=== PATIENT | female | born 1955 | race Hispanic/Latino ===

== ENCOUNTER 2023-06-07 07:40 | Day surgery (SDC) | payer OTHER ==
[2023-06-07] VITALS (11 sets, daily range): BP systolic 107–134; BP diastolic 55–76; PULSE 55–74; RESP 15–20
[~2023-06-07] VITALS: Ht 170.2 cm; Wt 139.7 kg
[~2023-06-07 07:40] MED LIST: 0.9%NACL 1000ML 1,000 ML IV ONE
[2023-06-07] MEDS ORDERED: LOVENOX SQ (09:29)
[2023-06-07] MEDS ORDERED: APIX5TAB PO (09:29)
[2023-06-07] MEDS ORDERED: VENL-62 PO (09:29)
[2023-06-07] MEDS ORDERED: POTASSIUM PO (09:29)
[2023-06-07] MEDS ORDERED: MELA1TAB28 PO (09:29)
[2023-06-07] MEDS ORDERED: ROSU20TA73 PO (09:29)
[2023-06-07] MEDS ORDERED: CETI10TA57 PO (09:29)
[2023-06-07] MEDS ORDERED: FERR325T29 PO (09:29)
[2023-06-07] MEDS ORDERED: OMEP20CA12 PO (09:29)
[2023-06-07] MEDS ORDERED: METO-409 PO (09:29)
[2023-06-07] MEDS ORDERED: LACT1CAP90 PO (09:29)
[2023-06-07] MEDS ORDERED: MULT-1250 PO (09:29)
[2023-06-07] MEDS ORDERED: PROPOFOL 10 MG/ML 20ML VIAL IV ONE ×2 (10:25→10:38)
== END 2023-06-07 12:40 | disposition home or self-care (01) ==
LOC: DAH 07:40 → ENDO 07:40
PROVIDERS: ATTEND Internal Medicine Gastroenterology
DX: D50.9 Iron deficiency anemia, unspecified (principal); R12 Heartburn; K63.5 Polyp of colon; K31.7 Polyp of stomach and duodenum; K63.89 Other specified diseases of intestine; K57.30 Diverticulosis of large intestine without perforation or abscess without bleeding; K64.9 Unspecified hemorrhoids; K44.9 Diaphragmatic hernia without obstruction or gangrene; K22.70 Barrett's esophagus without dysplasia; K29.50 Unspecified chronic gastritis without bleeding; K31.89 Other diseases of stomach and duodenum; I11.0 Hypertensive heart disease with heart failure; I50.20 Unspecified systolic (congestive) heart failure; F41.9 Anxiety disorder, unspecified; F32.A Depression, unspecified; E11.9 Type 2 diabetes mellitus without complications; M19.90 Unspecified osteoarthritis, unspecified site; E66.9 Obesity, unspecified; Z86.010 Personal history of colon polyps; Z79.899 Other long term (current) drug therapy; Z86.718 Personal history of other venous thrombosis and embolism; Z79.01 Long term (current) use of anticoagulants; Z87.891 Personal history of nicotine dependence; Z68.42 Body mass index [BMI] 45.0-49.9, adult
CPT/HCPCS: 43251; 82948 ×2; 43239; 45378; J7030 ×3; J2704 ×2; A4215 ×4; A7002 ×2; A4222 ×2; A4663 ×2; A4216 ×2; A4620 ×2; A4223 ×2; A4221 ×2; A4606 ×2; J3490

== ENCOUNTER 2023-06-08 09:31 | Day surgery (SDC) | payer OTHER ==
[2023-06-08] VITALS (10 sets, daily range): BP systolic 110–160; BP diastolic 50–99; PULSE 53–100; RESP 16
[~2023-06-08] VITALS: Ht 170.2 cm; Wt 139.7 kg
[~2023-06-08 09:31] MED LIST changes: -0.9%NACL 1000ML 1,000 ML IV ONE; +APIX5TAB PO; +CETI10TA57 PO; +FERR325T29 PO; +LACT1CAP90 PO; +LOVENOX SQ; +MELA1TAB28 PO; +METO-409 PO; +MULT-1250 PO; +OMEP20CA12 PO; +POTASSIUM PO; +ROSU20TA73 PO; +VENL-62 PO
[2023-06-08] MEDS ORDERED: 0.9%NACL 1000ML 1,000 ML IV ONE (10:40)
[2023-06-08] MEDS ORDERED: PROPOFOL 10 MG/ML 20ML VIAL IV ONE (12:38)
== END 2023-06-08 14:05 | disposition home or self-care (01) ==
LOC: ENDO 09:31
PROVIDERS: ATTEND Internal Medicine Gastroenterology
DX: Z09 Encounter for follow-up examination after completed treatment for conditions other than malignant neoplasm (principal); D12.3 Benign neoplasm of transverse colon; K57.30 Diverticulosis of large intestine without perforation or abscess without bleeding; K64.9 Unspecified hemorrhoids; I11.0 Hypertensive heart disease with heart failure; I50.20 Unspecified systolic (congestive) heart failure; D64.9 Anemia, unspecified; F41.9 Anxiety disorder, unspecified; F32.A Depression, unspecified; E11.9 Type 2 diabetes mellitus without complications; M19.90 Unspecified osteoarthritis, unspecified site; M81.0 Age-related osteoporosis without current pathological fracture; E66.9 Obesity, unspecified; I25.10 Atherosclerotic heart disease of native coronary artery without angina pectoris; Z88.3 Allergy status to other anti-infective agents; Z88.8 Allergy status to other drugs, medicaments and biological substances; Z86.718 Personal history of other venous thrombosis and embolism; Z79.01 Long term (current) use of anticoagulants; Z98.890 Other specified postprocedural states; Z80.0 Family history of malignant neoplasm of digestive organs; Z87.891 Personal history of nicotine dependence; Z79.899 Other long term (current) drug therapy; Z86.010 Personal history of colon polyps; Z68.41 Body mass index [BMI] 40.0-44.9, adult
CPT/HCPCS: 45385; J7030 ×2; J2704; A4215 ×2; A4223; A7002; A4222; A4221; A4663; A4606; J3490